=== PATIENT | female | born 1970 | race Two or more races ===

== ENCOUNTER 2017-06-01 23:54 | Emergency (ER) | payer MEDICAID, OTHER ==
[~2017-06-01] VITALS: Ht 157.5 cm; Wt 98.9 kg
[~2017-06-01 23:54] MED LIST: FERR324T11 PO; IBUP200C3 OR; TRI05TP TOP
[2017-06-02 00:15] VITALS: BP 125/75
== END 2017-06-02 05:07 | disposition left against medical advice (07) ==
LOC: ER 23:54
DX: R00.2 Palpitations (principal); Z53.21 Procedure and treatment not carried out due to patient leaving prior to being seen by health care provider
CPT/HCPCS: 93005

== ENCOUNTER 2020-02-05 19:25 | Emergency (ER) | payer MEDICAID ==
[~2020-02-05] VITALS: Ht 157.5 cm; Wt 105.2 kg
[2020-02-05 23:21] LABS: Basophils # (auto) 0.1 10 ^3/uL (0-0.2); Basophils % (auto) 0.9 % (0.0-2.0); Eosinophils # (auto) 0.2 10 ^3/uL (0-0.8); Hemoglobin 12.8 g/dL (12.2-16.2); Monocytes # (auto) 0.5 10 ^3/uL (0-1.3); Neutrophils # (auto) 4.7 10 ^3/uL (1.6-8.6); Platelet Count (auto) 255 10^3/uL (140-450); White Blood Cell 7.5 10^3/uL (4.4-10.8)
[2020-02-05 23:23] LABS: Eosinophils % (auto) 2.8 % (0.0-7.0); Hematocrit 37.8 % (36.0-46.0); Lymphocytes % (auto) 26.7 % (10.0-50.0); Mean Corpuscular Hemoglobin 27.6 pg (28.0-32.0); Mean Corpuscular Volume 81.2 fL (80.0-100.0); Monocytes % (auto) 6.6 % (0.0-12.0); Red Blood Cells 4.65 10^6/uL (4.0-5.20); Red Cell Distribution Width 13.3 % (11.8-14.3)
[2020-02-05 23:36] LABS: Alanine Aminotransferase 32 U/L (13-56); Albumin 3.6 g/dL (3.4-5.0); Anion Gap 6 (5-15); Aspartate Aminotransferase 18 U/L (15-37); BUN/Creatinine Ratio 21.3; Blood Urea Nitrogen 16 mg/dL (7-18); Calcium 8.9 mg/dL (8.5-10.1); Carbon Dioxide 24 mmol/L (21-32); Chloride 111 mmol/L (98-107); GFR African American 107 mL/min; GFR Non-African American 88 mL/min; Glucose 89 mg/dL (74-106); Magnesium 2.2 mg/dL (1.6-2.6); Potassium 3.8 mmol/L (3.5-5.1); Sodium 141 mmol/L (136-145)
[2020-02-05 23:39] LABS: INR 1.18 (0.9-1.15)
[2020-02-05 23:45] LABS: Alkaline Phosphatase 106 U/L (45-117); Bilirubin, Total 0.4 mg/dL (0.2-1.0); Total Protein 7.6 g/dL (6.4-8.2)
[2020-02-06 02:05] LABS: Urine Bacteria FEW /hpf (None Seen); Urine Blood Negative /uL (Negative); Urine Mucus FEW (None Seen); Urine Specific Gravity 1.028 (1.001-1.035); Urine WBC 2 /hpf (0 - 5)
[2020-02-06 03:00] VITALS: BP 116/70
== END 2020-02-06 03:00 | disposition home or self-care (01) ==
LOC: ER 19:25 → EDBD 19:25 → ER 02-06 03:00
DX: F41.0 Panic disorder [episodic paroxysmal anxiety] (principal)
CPT/HCPCS: 36415; 71045; 80053; 81001; 83735; 84443; 84484; 85025; 85610; 85730; 93005